=== PATIENT | male | born 1965 | race Caucasian/White ===

== ENCOUNTER 2017-12-09 14:23 | Emergency (ER) | payer SELFPAY ==
--- NOTE | 2017-12-09 14:42 | ER ---
Nurse's Notes [facility] Name: Huber Santos Age: 52 yrs Sex: Male : 1965 Arrival Date: 12/09/2017 Time: 14:26 Bed 13 Private MD: None, None Diagnosis: Cellulitis of left upper limb Presentation: 12/09 14:36 Presenting complaint: Patient states: pain, redness and swelling to L arm x 3 days. ss Denies fever/ injury. Transition of care: patient was not received from another setting of care. Onset of symptoms was December 06, 2017. Risk Assessment: Do you want to hurt yourself or someone else? Patient reports no desire to harm self or others. Initial Sepsis Screen: Does the patient meet any 2 criteria? No. Patient's initial sepsis screen is negative. Does the patient have a suspected source of infection? Yes: Skin breakdown/wound. Care prior to arrival: None. 14:36 Method Of Arrival: Ambulatory ss 14:36 Acuity: JODIE 3 ss Triage Assessment: 14:53 General: Appears in no apparent distress. comfortable, well developed, Behavior is kr2 calm, cooperative, appropriate for age. Pain: Complains of pain in left elbow Pain currently is 6 out of 10 on a pain scale. Quality of pain is described as aching, tender, Is continuous, Alleviated by medications, rest. Historical: - Allergies: 14:41 NKA; ss - PSHx: 14:41 Surgical Incision/Drainage of abscess; ss - Immunization history:: Adult Immunizations up to date. - Social history:: Smoking status: Patient uses tobacco products, smokes one pack cigarettes per day. - Ebola Screening: : Patient denies exposure to infectious person Patient denies travel to an Ebola-affected area in the 21 days before illness onset. Screenin:53 Abuse screen: Denies threats or abuse. Denies injuries from another. Nutritional kr2 screening: No deficits noted. Tuberculosis screening: No symptoms or risk factors identified. Fall Risk None identified. Assessment: 14:36 General: Appears in no apparent distress. comfortable, Behavior is calm, cooperative, ss Denies fever, feeling ill, fatigue, chills. Pain: Complains of pain in palmar aspect of left forearm Pain currently is 7 out of 10 on a pain scale. Quality of pain is described as tender, throbbing, Pain began 3-4 days ago Is continuous. Neuro: Level of Consciousness is awake, alert, obeys commands, Oriented to person, place, time, situation, Speech is normal. Cardiovascular: Capillary refill < 3 seconds is brisk in bilateral fingers. Respiratory: Airway is patent Respiratory effort is even, unlabored, Respiratory pattern is regular, symmetrical. GI: No signs and/or symptoms were reported involving the gastrointestinal system. EENT: Oral mucosa is moist. Throat is clear. Derm: large area of redness and swelling noted to L elbow area. Patient states, "I've had this 4 times before and it just goes away with antibiotics.". Musculoskeletal: Circulation, motion, and sensation intact. Range of motion: intact in all extremities, Swelling absent. Vital Signs: 14:35 BP 152 / 101; Pulse 101; Resp 16; Temp 97.6(TE); Pulse Ox 98% on R/A; Weight 77.11 kg; ss Height 5 ft. 9 in. (175.26 cm); Pain 7/10; 14:45 BP 143 / 104 RA Sitting (auto/reg); Pulse 101; Pulse Ox 98% on R/A; jp3 14:35 Body Mass Index 25.10 (77.11 kg, 175.26 cm) ED Course: 14:26 Patient arrived in ED. sb2 14:27 None, None is Private Physician. sb2 14:33 Melinda Kwon FNP-C is [facility]. kb 14:33 Victor Hugo Mccollum MD is Attending Physician. kb 14:35 Arm band placed on right wrist. ss 14:35 Pulse ox on. NIBP on. jp3 14:39 Triage completed. ss 14:49 Bed in low position. Call light in reach. jp3 14:54 Tiffanie Lucero, JADE is Primary Nurse. ss 14:54 No provider procedures requiring assistance completed. Patient did not have IV access kr2 during this emergency room visit. Patient refused to have any labwork performed, states, "I know what this is, this is the fourth time, I just need antibiotics". Administered Medications: 14:52 Drug: Clindamycin 300 mg Route: PO; kr2 14:53 Follow up: Response: Medication administered at discharge. kr2 14:53 Drug: Bactrim (160 mg-800 mg (DS) 1 tablet Route: PO; kr2 14:53 Follow up: Response: Medication administered at discharge. kr2 Outcome: 14:41 Discharge ordered by . donald 14:55 Discharged to home ambulatory. kr2 14:55 Condition: good 14:55 Discharge instructions given to patient, Instructed on discharge instructions, follow up and referral plans. medication usage, Demonstrated understanding of instructions, follow-up care, medications, Prescriptions given X 2. 14:55 Patient left the ED. kr2 Signatures: Melinda Kwon, DRUM OPERATOR-C DRUM OPERATOR-Tiffanie Rg RN RN ss Vivi Díaz RN RN kr2 Deborah Flores sb2 Srinivas Cruz jp3
--- NOTE | 2017-12-09 14:42 | EDPHYS ---
Physician Documentation [facility] Name: Huber Santos Age: 52 yrs Sex: Male : 1965 Arrival Date: 12/09/2017 Time: 14:26 Bed 13 Private MD: None, None ED Physician Victor Hugo Mccollum HPI: 12/09 14:39 This 52 yrs old Male presents to ER via Unassigned with complaints of ELBOW kb PAIN. 14:39 The patient presents with cellulitis of the left elbow and palmar aspect of left kb forearm. Description: erythematous, hot, swollen. Onset: The symptoms/episode began/occurred 4 day(s) ago. Possible cause(s): unknown. Associated signs and symptoms: Pertinent positives: erythema, swelling, Pertinent negatives: discharge, drainage, foreign body sensation, fever, headache, nausea, shortness of breath, vomiting. Modifying factors: the symptoms are alleviated by nothing, the symptoms are aggravated by movement, pressure. Severity of symptoms: At their worst the symptoms were moderate, in the emergency department the symptoms are unchanged. The patient has not experienced similar symptoms in the past. The patient has not recently seen a physician. Pt states he has had this three times (in different places) and knows that he needs antibiotics, but he would rather not have blood work done due to cost. . Historical: - Allergies: 14:41 NKA; ss - PSHx: 14:41 Surgical Incision/Drainage of abscess; ss - Immunization history:: Adult Immunizations up to date. - Social history:: Smoking status: Patient uses tobacco products, smokes one pack cigarettes per day. - Ebola Screening: : Patient denies exposure to infectious person Patient denies travel to an Ebola-affected area in the 21 days before illness onset. ROS: 14:39 Constitutional: Negative for fever, chills, and weight loss, Cardiovascular: Negative kb for chest pain, palpitations, and edema, Respiratory: Negative for shortness of breath, cough, wheezing, and pleuritic chest pain, Abdomen/GI: Negative for abdominal pain, nausea, vomiting, diarrhea, and constipation, Back: Negative for injury and pain, : Negative for injury, bleeding, discharge, and swelling, MS/Extremity: Negative for injury and deformity, Neuro: Negative for headache, weakness, numbness, tingling, and seizure. 14:39 Skin: Positive for cellulitis, of the palmar aspect of left forearm and left elbow. Exam: 14:39 Constitutional: This is a well developed, well nourished patient who is awake, alert, kb and in no acute distress. Head/Face: Normocephalic, atraumatic. Chest/axilla: Normal chest wall appearance and motion. Nontender with no deformity. No lesions are appreciated. Cardiovascular: Regular rate and rhythm with a normal S1 and S2. No gallops, murmurs, or rubs. Normal PMI, no JVD. No pulse deficits. Respiratory: Lungs have equal breath sounds bilaterally, clear to auscultation and percussion. No rales, rhonchi or wheezes noted. No increased work of breathing, no retractions or nasal flaring. Abdomen/GI: Soft, non-tender, with normal bowel sounds. No distension or tympany. No guarding or rebound. No evidence of tenderness throughout. Back: No spinal tenderness. No costovertebral tenderness. Full range of motion. MS/ Extremity: Pulses equal, no cyanosis. Neurovascular intact. Full, normal range of motion. Neuro: Awake and alert, GCS 15, oriented to person, place, time, and situation. Cranial nerves II-XII grossly intact. Motor strength 5/5 in all extremities. Sensory grossly intact. Cerebellar exam normal. Normal gait. 14:39 Skin: cellulitis, that is moderate, on the palmar aspect of left forearm and left elbow. Vital Signs: 14:35 BP 152 / 101; Pulse 101; Resp 16; Temp 97.6(TE); Pulse Ox 98% on R/A; Weight 77.11 kg; ss Height 5 ft. 9 in. (175.26 cm); Pain 7/10; 14:45 BP 143 / 104 RA Sitting (auto/reg); Pulse 101; Pulse Ox 98% on R/A; jp3 14:35 Body Mass Index 25.10 (77.11 kg, 175.26 cm) ss MDM: 14:33 Patient medically screened. kb 14:39 Data reviewed: vital signs, nurses notes. Data interpreted: Pulse oximetry: on room air kb is 98 %. Interpretation: normal. Counseling: I had a detailed discussion with the patient and/or guardian regarding: the historical points, exam findings, and any diagnostic results supporting the discharge/admit diagnosis, the need for outpatient follow up, a family practitioner, to return to the emergency department if symptoms worsen or persist or if there are any questions or concerns that arise at home. 14:41 Refusal of service: The patient/guardian displays adequate decision making capability kb and despite a detailed discussion of alternatives, benefits, risks, and consequences refuses: all lab tests. Administered Medications: 14:52 Drug: Clindamycin 300 mg Route: PO; kr2 14:53 Follow up: Response: Medication administered at discharge. kr2 14:53 Drug: Bactrim (160 mg-800 mg (DS) 1 tablet Route: PO; kr2 14:53 Follow up: Response: Medication administered at discharge. kr2 Disposition: 17:11 Co-signature as Attending Physician, Victor Hugo Mccollum MD. rn Disposition: 12/09/17 14:41 Discharged to Home. Impression: Cellulitis of left upper limb. - Condition is Stable. - Discharge Instructions: Cellulitis, Adult, [id number]. - Prescriptions for Clindamycin HCl 300 mg Oral Capsule - take 1 capsule by ORAL route every 6 hours for 7 days; 28 capsule. Bactrim DS 800- 160 mg Oral Tablet - take 1 tablet by ORAL route every 12 hours for 7 days; 14 tablet. - Medication Reconciliation Form, Thank You Letter, Antibiotic Education, Prescription Opioid Use form. - Follow up: Emergency Department; When: As needed; Reason: Worsening of condition. Follow up: Private Physician; When: 2 - 3 days; Reason: Recheck today's complaints, Continuance of care, Re-evaluation by your physician. Signatures: Melinda Kwon, HAND WASHER-C HAND WASHER-Ckb Victor Hugo Mccollum MD MD rn Smirch, Shelby, RN RN ss Reaves, Karey, RN RN kr2 Corrections: (The following items were deleted from the chart) 14:55 14:41 12/09/2017 14:41 Discharged to Home. Impression: Cellulitis of left upper limb. kr2 Condition is Stable. Forms are Medication Reconciliation Form, Thank You Letter, Antibiotic Education, Prescription Opioid Use. Follow up: Emergency Department; When: As needed; Reason: Worsening of condition. Follow up: Private Physician; When: 2 - 3 days; Reason: Recheck today's complaints, Continuance of care, Re-evaluation by your physician. kb
[2017-12-09] MEDS ORDERED: SMZ./TMP. 800/160 MG TABLET ONE (14:54)
[2017-12-09] MEDS ORDERED: CLINDAMYCIN HCL 150 MG CAP ONE (14:55)
[2017-12-09 15:05] VITALS: TEMP 97.6; O2SAT 98
[2017-12-09 15:06] VITALS: BP 143/104
== END 2017-12-09 14:55 | disposition home or self-care (01) ==
LOC: ER 14:23
DX: L03.114 Cellulitis of left upper limb (principal); F17.210 Nicotine dependence, cigarettes, uncomplicated
CPT/HCPCS: 99283